=== PATIENT | female | born 1980 | race Hispanic/Latino ===

== ENCOUNTER 2019-09-25 00:35 | Emergency (ER) | payer BC ==
--- OUTSIDE RECORDS SUMMARY | 2019-09-25 00:38 | XMS REPORT ---
:1980 [facility] Address [address] [place] [address] Care Team Providers Name Role Phone Unavailable Unavailable Unavailable Payers Payer Name Policy Type Policy Number Effective Date Expiration Date Problems This patient has no known problems. Allergies, Adverse Reactions, Alerts Allergy Allergy Status Severity Reaction(s) Onset Inactive Treating Comments Name Type Date Date Clinician No Known DA Active U 2019-01 00:00:0 0 Medications This patient has no known medications. Results Test Description Test Time Test Comments Text Results Atomic Results Result Comments HCG SERUM 2019-01-26 19:41:00 Test Item Value Reference Range Comments HCG SERUM (test code=HCG) 80152 INTERPRETATION:VALUES BETWEEN 15-20 milliInternational units/mL NEED TO BERETESTED WITHIN 48 HOURS. All units for these ranges are in milliInternationalunits/mL0-1 WK AFTER CONCEPTION 0-50 1-2 WKS AFTER CONCEPTION 40-3002-3 WKS AFTER CONCEPTION 100-1,0003-4 WKS AFTER CONCEPTION 500-6,0001-2 MONTHS AFTER CONCEPTION 5,000-200,0002-3 MONTHS AFTER CONCEPTION 10,000-100,0002ND TRIMESTER 3,000-50,0003RD TRIMESTER 1,000-50,000 SPECIMENS WITH AN HCG LEVEL FROM 0-6 milliInternationalunits/mL SHOULD BE CONSIDERED NEGATIVE CBC W/AUTO [id number] 18:58:00 Test Item Value Reference Range Comments WHITE BLOOD CELL (test code=WBC) 5.5 K/mm3 6.6-12.1 RED BLOOD CELL (test code=RBC) 4.20 M/mm3 3.45-5.01 HEMOGLOBIN (test code=HGB) 13.3 g/dL 10.7-13.9 HEMATOCRIT (test code=HCT) 42.0 % 32.1-42.1 MEAN CELL VOLUME (test code=MCV) 100 fL 84.1-94.8 MEAN CELL HGB (test code=MCH) 31.7 pg 27-35 MEAN CELL HGB CONCETRATION (test code=MCHC) 31.7 gm/dL 32.2-34.1 RED CELL DISTRIBUTION WIDTH (test code=RDW) 16.0 % 12.4-16.5 PLATELET COUNT (test code=PLT) 299 K/mm3 133-385 IMMATURE PLATELET FRACTION (test code=IPF) 0.0 % 0.0-10.8 MEAN PLATELET VOLUME (test code=MPV) 10.0 fl 9.1-12.7 NEUTROPHIL % (test code=NT%) 64.5 % 56.5-79.4 LYMPHOCYTE % (test code=LY%) 25.3 % 14.3-34.3 MONOCYTE % (test code=MO%) 8.7 % 5.1-10.4 EOSINOPHIL % (test code=EO%) 1.1 % 0.1-3.0 BASOPHIL % (test code=BA%) 0.2 % 0.1-1.0 NEUTROPHIL # (test code=NT#) 3.5 K/mm3 LYMPHOCYTE # (test code=LY#) 1.4 K/mm3 MONOCYTE # (test code=MO#) 0.5 K/mm3 EOSINOPHIL # (test code=EO#) 0.06 K/mm3 BASOPHIL # (test code=BA#) 0.0 K/mm3 RBC MORPHOLOGY REQUIRED (test code=RBCM) NORMAL NORMAL PLATELET MORPHOLOGY REQUIRED (test code=PLTMR) NORMAL NORMAL - US PREG UT [id number] 18:32:00 Patient Name: ANGEL MANZANARES Unit No: [id number] EXAMS: CPT CODE: [id number] [place] TRANSVAGINAL [address] PELVIC ULTRASOUND, 01/26/2019: COMPARISON: None CLINICAL HISTORY: VAGINAL BLEEDING TECHNIQUE: Transabdominal and endovaginal scanning was performed. FINDINGS: The uterus measures 12.3 x 6.4 x 8.3 cm. The uterus contains a gestational sac and pole. Mean crown-rump length was 6 mm consistent with estimated age of 6 weeks and 3 days. No cardiac activity noted. No definite subchorionic bleed identified. Multiple uterine fibroids were visualized. They measure as follows: 2.4 x 2.8 x 2.5 cm anterior intramural fibroid 1.6 x 1.8 x 1.9 cm anterior right intramural fibroid 1.9 x 1.8 x 1.8 cm posterior intramural fibroid 1.2 x 1.0 x 1.8 cm posterior intramural fibroid 2.4 x 2.0 x 2.2 cm fundal fibroid. The right ovary measures 3.5 x 1.9 x 2.5 cmand contains a 2.5 cm corpus luteum cyst. The left ovary measures 3.6 x 1.9 x 1.6 cm and appears normal. No free fluid is evident. CONCLUSION: Intrauterine gestation with estimated age of6 weeks and 3 days. No cardiac activity is seen. Findings are worrisome for nonviable intrauterine gestation. Recommend follow-up sonographic evaluation and/or correlation with serial beta hCG levels for confirmation. Fibroid uterus. Electronically Signed by Jefferson Camara MD on 2018 at 1832 Reported and signed by: Jefferson Camara MD CC: Sobeida Cee MD Technologist : Rabia Whitlock RDMS, RVT Probe: [id number] Trnscrbd D/ ( 183) [email or web address] Orig Print D/T: S: 01/26/2019(183) [facility] NAME: ANGEL MANZANARES Radiology Department PHYS: Sobeida Lao MD [address] : 1980 AGE: 38 SEX: F [place], [place] [address] LOC: JERI PHONE #: [phone] EXAM DATE: 01/26/2019 STATUS: REG ER FAX #: [phone] RAD NO: Page 1 Signed Report Patient Name: ANGEL MANZANARES Unit No : [id number] EXAMS: CPT CODE: [id number] [facility] TRANSVAGINAL [address] <Continued> [facility] NAME: ANGEL MANZANARES Radiology Department PHYS: Sobeida Lao MD [address] : 1980 AGE: 38 SEX: F [place] [address] LOC: JERI PHONE #: [phone] EXAM DATE: 01/26/2019 STATUS: REG ER FAX #: [phone] RAD NO: Page 2 Signed Report- US PREG EVAL 1ST [id number] 18:32:00 Patient Name: ANGEL MANZANARES Unit No: [id number] EXAMS : CPT CODE: [id number] US PREG EVAL 1ST TRIMTR 92097 PELVIC ULTRASOUND, 01/26/2019: COMPARISON: None CLINICAL HISTORY: VAGINAL BLEEDING TECHNIQUE: Transabdominal and endovaginal scanning was performed. FINDINGS: The uterus measures 12.3 x 6.4 x 8.3 cm. The uterus contains a gestational sac and pole. Mean crown-rump length was 6 mm consistent with estimated age of 6 weeks and 3 days. No cardiac activity noted. No definite subchorionic bleed identified. Multiple uterine fibroids were visualized. They measure as follows: 2.4 x 2.8 x 2.5 cm anterior intramural fibroid 1.6 x 1.8 x 1.9 cm anterior right intramural fibroid 1.9 x 1.8 x 1.8 cm posterior intramural fibroid 1.2 x 1.0 x 1.8 cm posterior intramural fibroid 2.4 x 2.0 x 2.2 cm fundal fibroid. The right ovary measures 3.5 x 1.9 x 2.5 cmand contains a 2.5 cm corpus luteum cyst. The left ovary measures 3.6 x 1.9 x 1.6 cm and appears normal. No free fluid is evident. CONCLUSION: Intrauterine gestation with estimated age of6 weeks and 3 days. No cardiac activity is seen. Findings are worrisome for nonviable intrauterine gestation. Recommend follow-up sonographic evaluation and/or correlation with serial beta hCG levels for confirmation. Fibroid uterus. at 1832 Reported and signed by: Jefferson Camara MD CC: Maite Saravia MD Technologist: Rabia Whitlock RDMS, RVT Probe: Trnscrbd D/ (1831) [email or web address] Orig Print D/T: S: 01/26/2019(1834) [facility] NAME: ANGLE MANZANARES Radiology Department PHYS : [facility] [address] : AGE: 38 SEX: F [place] [address] LOC: ElianERS PHONE #: [phone] EXAM DATE: STATUS: REG ER FAX #: [phone] RAD NO: Page 1 Signed Report Patient Name: ANGEL MANZANARES Unit No: [id number] EXAMS: CPT CODE: [id number] US PREG EVAL 1ST TRIMTR 08453 <Continued> [facility] NAME: ANGEL MANZANARES Radiology Department PHYS: REAGAN.Maite Rao MD [address] : 1980 AGE: 38 SEX: F [place] [address] LOC: ElianERS PHONE #: [phone] EXAM DATE: 01/26/2019 STATUS: REG ER FAX #: [phone] RAD NO: Page 2 Signed ReportUA RFLX MICR CULT IF [id number] 18:12:00 Test Item Value Reference Range Comments UA COLOR (test code=COLU) YELLOW YELLOW UA APPEARANCE (test code=APPU) CLEAR CLEAR UA GLUCOSE DIPSTICK (test code=DGLUU) NEGATIVE NEG UA BILIRUBIN DIPSTICK (test code=BILU) NEGATIVE NEG UA KETONE DIPSTICK (test code=KETU) NEGATIVE NEG UA SPECIFIC GRAVITY (test code=SGU) 1.023 1.001-1.035 UA BLOOD DIPSTICK (test code=CONSTANCE) 1+ NEG UA PH DIPSTICK (test code=GIGI) 5.0 5-9 UA PROTEIN DIPSTICK (test code=PROU) NEGATIVE NEG UA UROBILINIOGEN DIPSTICK (test code=URO) NEGATIVE mg/dL NEG UA NITRITE DIPSTICK (test code=JANNET) NEG NEG UA LEUKOCYTE ESTERASE DIPSTICK (test NEG NEG code=LEUU) UA WBC (test code=WBCU) 0-2 #/hpf NONE SEEN UA RBC (test code=RBCU) 0-2 #/hpf NONE SEEN UA EPITHELIAL CELLS (test code=EPIU) NONE SEEN #/HPF RARE-FEW UA BACTERIA (test code=BACU) NEGATIVE /HPF RARE-FEW UA MUCUS (test code=MUCU) 2+ NONE SEEN Indication for culture: Suprapubic Pain
--- OUTSIDE RECORDS SUMMARY | 2019-09-25 00:38 | XMS REPORT ---
:1980 Author Organization [employer] Care Team Providers Name Role Phone Karthikeyan Russo Provider Role Unavailable Allergies, Adverse Reactions, Alerts Substance Reaction Event Type N.K.D.A. 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 Problem Well woman exam Z01.419 Active Medications Medication Code Code Instructions Start End Status Dosage System Date Date Ibuprofen [facility] [id number] 200 MG Orally Active 2 tablets twice a day with food or milk as needed [facility] [id number] 1-20 MG-MCG October Active 1 tablet 1/20 Orally Once a 2017 day [facility] [place] [address]-65 1-20 MG-MCG Active 1 TABLET 1/20 ONCE A DAY ORALLY 84 DAYS Results Name Result Date Reference Range Unit Abnormality Flag ANTI-MULLERIAN HORMONE (FEMALE) 3707-7 ----ANTI-MULLERIAN HORMONE 0.98 [id number] 0.18-5.68 ng/mL ([facility]), FEMALE Summary Purpose [employer] Submission
--- OUTSIDE RECORDS SUMMARY | 2019-09-25 00:38 | XMS REPORT ---
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
[2019-09-25 01:51] LABS: Basophils % 0.5 % (0-1.3); Hematocrit 39.4 % (36.0-45.0); Lymphocytes % 37.2 % (15.3-44.8); MPV 9.1 fL (7.6-11.3); RBC Red Blood Cell Count 4.18 M/uL (3.86-4.86)
[2019-09-25] MEDS ORDERED: NA CHLORIDE 0.9% 500 ML ONE (01:58)
[2019-09-25] MEDS ORDERED: MECLIZINE HCL 12.5 MG TAB ONE (01:58)
[2019-09-25 01:59] LABS: Potassium 3.6 mmol/L (3.5-5.1)
[2019-09-25 03:46] LABS: Urine Blood NEGATIVE (NEG); Urine Glucose NEGATIVE (NEG); Urine Protein NEGATIVE (NEG); Urine pH 5.5 (5.0-7.0)
[2019-09-25 03:48] LABS: Urine Bacteria <20 /HPF (<20); Urine Culture Reflex Order NOT NEEDED; Urine RBC <5 /HPF (NONE SEEN)
--- NOTE | 2019-09-25 04:25 | EDPHYS ---
Physician Documentation [facility] Name: Diamond Lugo Age: 39 yrs Sex: Female : 1980 Arrival Date: 09/25/2019 Time: 00:38 Bed 5 Private MD: ED Physician Hermilo Gonzalez HPI: 09/24 02:04 This 39 yrs old Female presents to ER via Ambulatory with complaints of rn Dizziness, Headache, Doesn't Feel Right. 02:04 The patient presents with dizziness, feeling off balance, sense of spinning. Onset: The rn symptoms/episode began/occurred yesterday. Modifying factors: The symptoms are alleviated by holding head still, the symptoms are aggravated by changing position. Severity of symptoms: At their worst the symptoms were moderate in the emergency department the symptoms have improved. The patient has not experienced similar symptoms in the past. Reports yesterday morning "felt off", but nothing came of it, then around 2000 when getting out of bed, felt sensation of spinning and dizziness, no nausea/vomiting, no fever. No diarrhea or recent illness. No chest pain/sob. Worse when laying flat and changing position. . Historical: - Allergies: 00:50 No Known Allergies; jb4 - Home Meds: 00:50 hydroxycloroquine 1 tab 200 mg twice a day with meals [Active]; jb4 - PMHx: 00:50 Arthritis; jb4 - PSHx: 00:50 Knee surgery; jb4 - Immunization history:: Adult Immunizations up to date. - Social history:: Smoking status: Patient denies any tobacco usage or history of. Patient/guardian denies using alcohol, street drugs. - Family history:: not pertinent. - Hospitalizations: : No recent hospitalization is reported. ROS: 02:04 Constitutional: Negative for fever, chills, and weight loss, Eyes: Negative for injury, rn pain, redness, and discharge, Neck: Negative for injury, pain, and swelling, Cardiovascular: Negative for chest pain, palpitations, and edema, Respiratory: Negative for shortness of breath, cough, wheezing, and pleuritic chest pain, Abdomen/GI: Negative for abdominal pain, nausea, vomiting, diarrhea, and constipation, MS/Extremity: Negative for injury and deformity, Skin: Negative for injury, rash, and discoloration, Neuro: Negative for weakness, numbness, tingling, and seizure. Exam: 02:04 Constitutional: This is a well developed, well nourished patient who is awake, alert, rn and in no acute distress. Head/Face: Normocephalic, atraumatic. Eyes: Pupils equal round and reactive to light, extra-ocular motions intact. Lids and lashes normal. Conjunctiva and sclera are non-icteric and not injected. Cornea within normal limits. Periorbital areas with no swelling, redness, or edema. ENT: MMM Cardiovascular: Regular rate and rhythm. No pulse deficits. Respiratory: No increased work of breathing, no retractions or nasal flaring. Abdomen/GI: soft, non-tender MS/ Extremity: Pulses equal, no cyanosis. Neurovascular intact. Full, normal range of motion. Equal circumference. Neuro: Awake and alert, GCS 15, oriented to person, place, time, and situation. Cranial nerves II-XII grossly intact. Motor strength 5/5 in all extremities. Sensory grossly intact. Cerebellar exam normal. 03:00 ECG was reviewed by the Attending Physician. rn Vital Signs: 00:50 BP 125 / 88; Pulse 64; Resp 16; Temp 98.3(O); Pulse Ox 99% on R/A; Pain 6/10; jb4 00:57 BP 115 / 78 Supine; Pulse 73; mt 00:57 BP 127 / 83 Sitting; Pulse 97; mt 00:57 BP 115 / 85 Standing; Pulse 92; mt 02:15 BP 129 / 78; Pulse 74; Resp 16; Pulse Ox 98% on R/A; jb4 03:01 BP 126 / 77; Pulse 73; Resp 16; Pulse Ox 99% on R/A; jb4 04:15 BP 123 / 77; Pulse 64; Resp 16; Pulse Ox 99% on R/A; jb4 MDM: 00:58 Patient medically screened. rn 04:15 Differential diagnosis: generalized weakness, hypovolemia, idiopathic dizziness, rn near-syncope, TIA, vertigo. Data reviewed: vital signs, nurses notes, lab test result(s), EKG, radiologic studies, CT scan, and as a result, I will. Counseling: I had a detailed discussion with the patient and/or guardian regarding: the historical points, exam findings, and any diagnostic results supporting the discharge/admit diagnosis, radiology results, the need for outpatient follow up, to return to the emergency department if symptoms worsen or persist or if there are any questions or concerns that arise at home. Response to treatment: the patient's symptoms have mildly improved after treatment, and as a result, I will discharge patient. Special discussion: I discussed with the patient/guardian in detail that at this point there is no indication for admission to the hospital. It is understood, however, that if the symptoms persist or worsen the patient needs to return immediately for re-evaluation. Based on the history and exam findings, there is no indication for further emergent testing or inpatient evaluation. I discussed with the patient/guardian the need to see the neurologist for further evaluation of the symptoms. I discussed with the patient/guardian the need to see the primary care provider for further evaluation of the symptoms. ED course: No acute findings on ct head/neck angio, improved symptoms, will dc home with meclizine prn and neuro f/u. . 09/24 01:12 Order name: CBC with Diff; Complete Time: 02:17 rn 09/24 01:12 Order name: Basic Metabolic Panel; Complete Time: 02:17 rn 09/24 01:12 Order name: CT Head Brain wo Cont rn 09/24 01:12 Order name: Urine Microscopic Only; Complete Time: 04:15 rn 09/24 03:06 Order name: Urine Dipstick--Ancillary (enter results); Complete Time: 04:15 mw2 09/24 03:06 Order name: Urine --Ancillary (enter results); Complete Time: 04:15 mw2 09/24 01:12 Order name: IV Start; Complete Time: 01:24 rn 09/24 01:12 Order name: EKG; Complete Time: 01:12 rn 09/24 01:12 Order name: EKG - Nurse/Tech; Complete Time: 02:26 rn 09/24 01:12 Order name: Urine Test (obtain specimen); Complete Time: 03:07 rn 09/24 03:04 Order name: CT Head Angio rn 09/24 03:04 Order name: CT Neck Angio rn 09/24 01:12 Order name: Urine Dipstick-Ancillary (obtain specimen); Complete Time: 03:07 rn EC:00 Rate is 68 beats/min. Rhythm is regular. QRS [place] is Normal. [place] interval is normal. QRS rn interval is normal. QT interval is normal. No Q waves. T waves are Normal. No ST changes noted. Clinical impression: Normal ECG. Interpreted by me. Reviewed by me. Administered Medications: 02:10 Drug: Meclizine 50 mg Route: PO; 4 03:00 Follow up: Response: No adverse reaction; Marked relief of symptoms [facility] 02:20 Drug: NS 0.9% 500 ml Route: IV; Rate: bolus; Site: left antecubital; 4 03:00 Follow up: Response: No adverse reaction; IV Status: Completed infusion; IV Intake: jb4 500ml Disposition: 09/25/19 04:24 Discharged to Home. Impression: Vertigo. - Condition is Stable. - Discharge Instructions: Vertigo. - Prescriptions for Meclizine 25 mg Oral Tablet - take 1 tablet by ORAL route every 8 hours As needed; 30 tablet. - Medication Reconciliation Form, Thank You Letter, Antibiotic Education, Prescription Opioid Use form. - Follow up: Private Physician; When: As needed; Reason: Recheck today's complaints, Re-evaluation by your physician. - Problem is new. - Symptoms have improved. Signatures: Dispatcher [employer] EDMS Hermilo Gonzalez MD MD rn Bryson, James, RN RN jb4 Corrections: (The following items were deleted from the chart) 04:47 04:24 09/25/2019 04:24 Discharged to Home. Impression: Vertigo. Condition is Stable. jb4 Discharge Instructions: Vertigo. Prescriptions for Meclizine 25 mg Oral Tablet - take 1 tablet by ORAL route every 8 hours As needed; 30 tablet. and Forms are Medication Reconciliation Form, Thank You Letter, Antibiotic Education, Prescription Opioid Use. Follow up: Private Physician; When: As needed; Reason: Recheck today's complaints, Re-evaluation by your physician. Problem is new. Symptoms have improved. rn
--- NOTE | 2019-09-25 04:25 | ER ---
Nurse's Notes [facility] Name: Diamond Lugo Age: 39 yrs Sex: Female : 1980 Arrival Date: 09/25/2019 Time: 00:38 Bed 5 Private MD: Diagnosis: Vertigo Presentation: 09/24 00:50 Chief complaint: Patient states: I started just feeling off at around 9am yesterday jb4 after having my morning coffee. I started having a headache at around 7pm last night and started feeling dizzy around 8pm. 00:50 Coronavirus screen: The patient has NOT traveled to [place] in the past 14 days. Proceed jb4 with normal triage procedures. The patient has NOT had contact with known and/or suspected case of Coronavirus. Proceed with normal triage procedures. Ebola Screen: No symptoms or risks identified at this time. Initial Sepsis Screen: Does the patient meet any 2 criteria? No. Patient's initial sepsis screen is negative. Does the patient have a suspected source of infection? No. Patient's initial sepsis screen is negative. Risk Assessment: Do you want to hurt yourself or someone else? Patient reports no desire to harm self or others. 00:50 Method Of Arrival: Ambulatory jb4 00:50 Acuity: SHANDA 3 jb4 Triage Assessment: 00:50 Headache History: Denies prior headaches. General: Appears in no apparent distress. jb4 uncomfortable, Behavior is calm, cooperative, appropriate for age. Pain: Complains of pain in headache Pain does not radiate. Pain currently is 6 out of 10 on a pain scale. Pain began 7 pm yesterday. Also complains of no other associated symptoms. Neuro: Level of Consciousness is awake, alert, obeys commands, Oriented to person, place, time, situation, [place] are equal bilaterally Moves all extremities. Full function. Historical: - Allergies: 00:50 No Known Allergies; jb4 - Home Meds: 00:50 hydroxycloroquine 1 tab 200 mg twice a day with meals [Active]; jb4 - PMHx: 00:50 Arthritis; jb4 - PSHx: 00:50 Knee surgery; jb4 - Immunization history:: Adult Immunizations up to date. - Social history:: Smoking status: Patient denies any tobacco usage or history of. Patient/guardian denies using alcohol, street drugs. - Family history:: not pertinent. - Hospitalizations: : No recent hospitalization is reported. Screenin:50 Abuse screen: Denies threats or abuse. Nutritional screening: No deficits noted. jb4 Tuberculosis screening: No symptoms or risk factors identified. Fall Risk None identified. Assessment: 00:50 General: Appears in no apparent distress. comfortable, Behavior is calm, cooperative, jb4 appropriate for age. Pain: Complains of pain in headache Pain does not radiate. Pain currently is 6 out of 10 on a pain scale. Pain began 7 pm Also complains of no other associated symptoms. Neuro: Level of Consciousness is awake, alert, obeys commands, Oriented to person, place, time, situation, [place] are equal bilaterally Moves all extremities. Full function Gait is steady, Speech is normal, Facial symmetry appears normal, Pupils are PERRLA, Intact. Cardiovascular: Patient's skin is warm and dry. Respiratory: Airway is patent Respiratory effort is even, unlabored, Respiratory pattern is regular, symmetrical. GI: No signs and/or symptoms were reported involving the gastrointestinal system. : No signs and/or symptoms were reported regarding the genitourinary system. EENT: No signs and/or symptoms were reported regarding the EENT system. Derm: Skin is intact, Skin is pink, warm \T\ dry. Musculoskeletal: Circulation, motion, and sensation intact. Range of motion: intact in all extremities. 02:00 Reassessment: Patient appears in no apparent distress at this time. Patient and/or jb4 family updated on plan of care and expected duration. Pain level reassessed. Patient is alert, oriented x 3, equal unlabored respirations, skin warm/dry/pink. Pt reports that the dizziness has decreased. 03:01 Reassessment: Patient appears in no apparent distress at this time. Patient and/or jb4 family updated on plan of care and expected duration. Pain level reassessed. Patient is alert, oriented x 3, equal unlabored respirations, skin warm/dry/pink. Pt reports the dissiness is still there. Reports it worsens when laying down flat and when trying to ambulate. Pt reports worsening headache, rates pain \T\ 1/10, denies wanting any medication for it. Provider notified. 04:00 Reassessment: Patient appears in no apparent distress at this time. Patient and/or jb4 family updated on plan of care and expected duration. Pain level reassessed. Patient is alert, oriented x 3, equal unlabored respirations, skin warm/dry/pink. PT reports still feeling dizzy. Updated on plan of care and pending test results. 04:41 Reassessment: Pt reports feeling better. Reports dizziness has decreased, denies still jb4 having a headache. Verbalized understanding of d/c and follow up instructions. IV D/C'ed intact with no s/s of inflammation at insertion site. Is a\T\o x4, ambulated out of ED with a steady gait. Went home with significant other. Vital Signs: 00:50 BP 125 / 88; Pulse 64; Resp 16; Temp 98.3(O); Pulse Ox 99% on R/A; Pain 6/10; jb4 00:57 BP 115 / 78 Supine; Pulse 73; mt 00:57 BP 127 / 83 Sitting; Pulse 97; mt 00:57 BP 115 / 85 Standing; Pulse 92; mt 02:15 BP 129 / 78; Pulse 74; Resp 16; Pulse Ox 98% on R/A; jb4 03:01 BP 126 / 77; Pulse 73; Resp 16; Pulse Ox 99% on R/A; jb4 04:15 BP 123 / 77; Pulse 64; Resp 16; Pulse Ox 99% on R/A; jb4 ED Course: 00:38 Patient arrived in ED. jg7 00:50 Arm band placed on right wrist. jb4 00:50 Patient has correct armband on for positive identification. Bed in low position. Call jb4 light in reach. Side rails up X 1. Pulse ox on. NIBP on. 00:54 Eriberto Larson, RN is Primary Nurse. jb4 00:58 Hermilo Gonzalez MD is Attending Physician. rn 01:08 Triage completed. jb4 01:23 Inserted saline lock: 20 gauge in right antecubital area, using aseptic technique. mt Blood collected. 01:33 CT Head Brain wo Cont In Process Unspecified. EDMS 02:10 IV discontinued, intact, bleeding controlled, No redness/swelling at site. Pressure jb4 dressing applied. 02:15 Missed attempt(s): 20 gauge in right wrist. Bleeding controlled, band aid applied, jb4 catheter tip intact. 02:20 Inserted saline lock: 22 gauge in left forearm, using aseptic technique. jb4 03:47 CT Head Angio In Process Unspecified. EDMS 03:54 CT Neck Angio In Process Unspecified. EDMS 04:46 No provider procedures requiring assistance completed. IV discontinued, intact, jb4 bleeding controlled, No redness/swelling at site. Pressure dressing applied. Administered Medications: 02:10 Drug: Meclizine 50 mg Route: PO; jb4 03:00 Follow up: Response: No adverse reaction; Marked relief of symptoms jb4 02:20 Drug: NS 0.9% 500 ml Route: IV; Rate: bolus; Site: left antecubital; jb4 03:00 Follow up: Response: No adverse reaction; IV Status: Completed infusion; IV Intake: jb4 500ml Intake: 03:00 IV: 500ml; Total: 500ml. jb4 Outcome: 04:24 Discharge ordered by . rn 04:46 Discharged to home ambulatory, with family. jb4 04:46 Condition: stable 04:46 Discharge instructions given to patient, Instructed on discharge instructions, follow up and referral plans. medication usage, Demonstrated understanding of instructions, follow-up care, medications, Prescriptions given X 1. 04:47 Patient left the ED. jb4 Signatures: Dispatcher [employer] Hermilo Levy MD MD rn Bryson, James, RN RN jb4 Thompson, Moriah mt Gutierrez, Jessica jg7
[2019-09-25 05:03] VITALS: TEMP 98.3
[2019-09-25 05:07] VITALS: O2SAT 99
[2019-09-25 05:09] VITALS: BP 123/77
--- NOTE | 2019-09-25 05:51 | EKG ---
Test Date: 2019-09-25 Test Time: 02:19:37 Marketing Research Coordinator: RICHARD MEASUREMENT RESULTS: Intervals: Rate: 68 DE: 170 QRSD: 80 QT: 380 QTc: 404 [place]: P: 40 DE: 170 QRS: 55 T: 49 INTERPRETIVE STATEMENTS: Normal sinus rhythm Normal ECG No previous ECG available for comparison Electronically Signed On 09-25-19 05:51:03 COMPOSITE BOND WORKER by Zackery Adams
--- NOTE | 2019-09-25 12:29 | RAD REPORT ---
EXAM DESCRIPTION: CT - Head Brain Wo Cont - 09/25/2019 5:25 am CLINICAL HISTORY: 39-year-old female with dizziness TECHNIQUE: Multiple axial CT images of the brain were performed followed by sagittal and coronal rec onstructed images. The CT study is performed according to ALARA (as low as reasonably achievable) or ALARA/IMAGE GENTLY, with automatic adjustment of mA and/or kV according to patient size. Performed on: 09/25/2019 at 1:32 AM COMPARISON: None. FINDINGS: There is no evidence of mass, acute mass effect or midline shift. There are no acute extra -axial fluid collections. There is no evidence of acute intracranial hemorrhage. The cerebral sulci and ventricles are normal in size and configuration. There are no focal abnormal areas of increased or decreased attenuation. There is no significant mucosal thickening of the paranasal sinuses. The mastoid air cells are clear. The orbital contents are grossly unremarkable. No acute osseous abnormalities are identified. No focal soft tissue abnormalities are identified. IMPRESSION: There is no evidence of acute intracranial pathology. Electronically signed by: Shazia Cueva DO 09/25/2019 1:46 AM CERTIFIED MEDICAL ASST Due to temporary technical issues with the PACS/Fluency reporting system, reports are being signed by the in house radiologist as a courtesy to ensure prompt reporting. The interpreting radiologist is f ully responsible for the content of the report.
--- NOTE | 2019-09-25 12:31 | RAD REPORT ---
EXAM DESCRIPTION: CT - Head angio - 09/25/2019 5:25 am CLINICAL HISTORY: 39 years, Female, DIZZINESS COMPARISON: 09/25/2019 TECHNIQUE: Axial CTA images of the head and neck obtained following the uncomplicated intravenous ad ministration of iodinated contrast. 3-D/MIP reformatted images available. FINDINGS: CTA head: In the anterior circulation, the intracranial internal carotid arteries have normal course and calibe r. The internal carotid arteries bifurcate into widely patent A1 and M1 segments of the anterior and middle cerebral arteries respectively. No evidence of flow-limiting stenosis, aneurysm, occlusion, or dissection in the anterior circulation. The anterior communicating artery is patent. In the posterior circulation, the intracranial vertebral arteries combine to form a widely patent bas ilar artery. The basilar artery bifurcates into widely patent P1 segments of the posterior cerebral a rtery. No evidence of stenosis, aneurysm, occlusion, or dissection in the posterior circulation. No definite acute intracranial abnormality identified. No acute abnormality of the osseous calvarium. Paranasal sinuses and mastoid air cells are well aerated. CTA NECK: The aortic arch has normal anatomic configuration. The origin of the great vessels are widely patent. The right common carotid artery is widely patent and bifurcates into widely patent internal and exter nal carotid arteries. 0% stenosis by NASCET criteria. No evidence of occlusion or dissection. The left common carotid artery is widely patent and bifurcates into widely patent internal and broom bundler al carotid arteries. 0% stenosis by NASCET criteria. No evidence of occlusion or dissection. The cervical vertebral arteries are widely patent throughout their course. No evidence of occlusion, stenosis, or dissection. No definite acute abnormalities in the neck soft tissues. No apical pneumothorax. No acute osseous ab normalities. IMPRESSION: 1. No evidence of stenosis, occlusion or aneurysm in the intracranial arterial circulati on. 2. No evidence of stenosis/occlusion of the cervical carotid or vertebral arteries. This exam was performed according to our departmental dose-optimization program, which includes autom ated exposure control, adjustment of the mA and/or kV according to patient size and/or use of iterati ve reconstruction technique. Electronically signed by: Apollo Jang 09/25/2019 4:18 AM HAIRSPRING II INSPECTOR Due to temporary technical issues with the PACS/Fluency reporting system, reports are being signed by the in house radiologist as a courtesy to ensure prompt reporting. The interpreting radiologist is f srinivasly responsible for the content of the report.
--- NOTE | 2019-09-25 12:33 | RAD REPORT ---
EXAM DESCRIPTION: CT - Neck Angio - 09/25/2019 5:24 am CLINICAL HISTORY: 39 years, Female, DIZZINESS COMPARISON: 09/25/2019 TECHNIQUE: Axial CTA images of the head and neck obtained following the uncomplicated intravenous ad ministration of iodinated contrast. 3-D/MIP reformatted images available. FINDINGS: CTA head: In the anterior circulation, the intracranial internal carotid arteries have normal course and calibe r. The internal carotid arteries bifurcate into widely patent A1 and M1 segments of the anterior and middle cerebral arteries respectively. No evidence of flow-limiting stenosis, aneurysm, occlusion, or dissection in the anterior circulation. The anterior communicating artery is patent. In the posterior circulation, the intracranial vertebral arteries combine to form a widely patent bas ilar artery. The basilar artery bifurcates into widely patent P1 segments of the posterior cerebral a rtery. No evidence of stenosis, aneurysm, occlusion, or dissection in the posterior circulation. No definite acute intracranial abnormality identified. No acute abnormality of the osseous calvarium. Paranasal sinuses and mastoid air cells are well aerated. CTA NECK: The aortic arch has normal anatomic configuration. The origin of the great vessels are widely patent. The right common carotid artery is widely patent and bifurcates into widely patent internal and exter nal carotid arteries. 0% stenosis by NASCET criteria. No evidence of occlusion or dissection. The left common carotid artery is widely patent and bifurcates into widely patent internal and manager quality systems al carotid arteries. 0% stenosis by NASCET criteria. No evidence of occlusion or dissection. The cervical vertebral arteries are widely patent throughout their course. No evidence of occlusion, stenosis, or dissection. No definite acute abnormalities in the neck soft tissues. No apical pneumothorax. No acute osseous ab normalities. IMPRESSION: 1. No evidence of stenosis, occlusion or aneurysm in the intracranial arterial circulati on. 2. No evidence of stenosis/occlusion of the cervical carotid or vertebral arteries. This exam was performed according to our departmental dose-optimization program, which includes autom ated exposure control, adjustment of the mA and/or kV according to patient size and/or use of iterati ve reconstruction technique. Electronically signed by: Apollo Jang 09/25/2019 4:18 AM TRANSCRIPTION TYPIST Due to temporary technical issues with the PACS/Fluency reporting system, reports are being signed by the in house radiologist as a courtesy to ensure prompt reporting. The interpreting radiologist is f srinivasly responsible for the content of the report.
== END 2019-09-25 04:47 | disposition home or self-care (01) ==
LOC: ER 00:35
DX: R42 Dizziness and giddiness (principal)
CPT/HCPCS: 93005; 85025; 80048; 36415; 81025; 70450; 70496; 70498; 96360; 99284; Q9967; J7040; 81003; 81015; J8597

== ENCOUNTER 2020-01-26 01:23 | Emergency (ER) | payer BC ==
--- OUTSIDE RECORDS SUMMARY | 2020-01-26 01:27 | XMS REPORT | Continuity of Care Document ---
:1980 Author Organization [facility] Address [address] [place] [address] Care Team Providers Name Role Phone Unavailable Unavailable Unavailable Payers Payer Name Policy Type Policy Number Effective Date Expiration Date S ource Problems Condition Condition Condition Status Onset Resolution Last Treating Co mments Source Name Details Category Date Date Treatment Clinician Date Systemic Systemic Problem [facility] erythe[facility]o erythemato Me moria alex alex l [facility] Abnormal Abnormal Problem Active [facility] Sarahi kes - test test Memoria [facility] Well woman Well woman Problem Active [facility] exam exam [facility] - Memoria l [facility] Female Female Problem Active [facility] fertility fertility Luke s - problem problem Memoria l [facility] Allergies, Adverse Reactions, Alerts Allergy Allergy Status Severity Reaction(s) Onset Inactive Treating Comm ents Source Name Type Date Date Clinician No Known DA Active [facility]05 [facility] Medications Ordered Filled Start Stop Current Ordering Indication Dosage Frequency Signature Comments Components Source Medication Medication Date Date Medication? Clinician (SIG) Name Name Daniele EDWARDS Yes Karthikeyan [address] [facility] 08/13 08/13 4-11 Rekhi ONCE A DAY [facility] - 00:00: ORALLY 84 Memoria 00 DAYS l [facility] Ibuprofen Ibuprofen Yes Karthikeyan [address] [facility] Rekhi with food [facility] - or milk as Memoria needed [facility] ent Clinics Procedures This patient has no known procedures. Encounters Start End Encounter Admission Attending Care Care Encounter Source Date/Time Date/Time Type Type Clinicians Facility Department ID 2019-01-05 2019-01-05 Outpatient [facility]o [facility] [id number] [facility] 16:01:00 16:01:00 t [facility] 2018-08-21 2018-08-21 [place] [place] [id number] [facility] 13:42:00 13:42:00 t [facility] 2018-07-28 2018-07-28 [place] [id number] [facility] 10:30:00 10:30:00 t [facility] 2017-12-09 2017-12-09 Outpatient [place] [id number] [facility] 09:30:00 09:30:00 t [facility] 2017-12-06 2017-12-06 Outpatient [place] [id number] [facility] 15:45:00 15:45:00 t [facility] Results Test Description Test Time Test Comments Results Result Comments Source HCG SERUM 2019-01-26 19:41:00 Test Item Value Reference Range Interpretation Comme nts HCG SERUM (test code = 42329 INTER PRETATION:VALUES BETWEEN 15-20 HCG) milliInternatio nal units/mL NEED TO BERETESTED WITHIN 48 HOURS . All units for these ranges are in milliInterna tionalunits/mL0-1 WK AFTER CONCEPTION 0-50 1-2 WKS AFTER CONCEPTION 40-3002-3 WKS AFTER CONCEPTION 100-1,0003-4 WKS AFTER CONCEPTION 500-6,0001-2 MONTHS AFTER CONCEPTION 5,000-200,0002-3 MONTHS AFTER CONCEPTION 10,000-100,0002ND TRIMESTER 3,0 00-50,0003RD TRIMESTER 1,000-50 ,000 SPECIMENS WITH AN HCG LEVEL FROM 0-6 milliI nternationalunits/mL SHOULD BE CONSIDERED NEGA TIVE CBC W/AUTO [id number] 18:58:00 Test Item Value Reference Range Interpretation Comments WHITE BLOOD CELL (test code = WBC) 5.5 K/mm3 6.6-12.1 L RED BLOOD CELL (test code = RBC) 4.20 M/mm3 3.45-5.01 N HEMOGLOBIN (test code = HGB) 13.3 g/dL 10.7-13.9 N HEMATOCRIT (test code = HCT) 42.0 % 32.1-42.1 N MEAN CELL VOLUME (test code = MCV) 100 fL 84.1-94.8 H MEAN CELL HGB (test code = MCH) 31.7 pg 27-35 N MEAN CELL HGB CONCETRATION (test 31.7 gm/dL 32.2-34.1 L code = MCHC) RED CELL DISTRIBUTION WIDTH (test 16.0 % 12.4-16.5 N code = RDW) PLATELET COUNT (test code = PLT) 299 K/mm3 133-385 N IMMATURE PLATELET FRACTION (test 0.0 % 0.0-10.8 N code = IPF) MEAN PLATELET VOLUME (test code = 10.0 fl 9.1-12.7 N MPV) NEUTROPHIL % (test code = NT%) 64.5 % 56.5-79.4 N LYMPHOCYTE % (test code = LY%) 25.3 % 14.3-34.3 N MONOCYTE % (test code = MO%) 8.7 % 5.1-10.4 N EOSINOPHIL % (test code = EO%) 1.1 % 0.1-3.0 N BASOPHIL % (test code = BA%) 0.2 % 0.1-1.0 N NEUTROPHIL # (test code = NT#) 3.5 K/mm3 LYMPHOCYTE # (test code = LY#) 1.4 K/mm3 MONOCYTE # (test code = MO#) 0.5 K/mm3 EOSINOPHIL # (test code = EO#) 0.06 K/mm3 BASOPHIL # (test code = BA#) 0.0 K/mm3 RBC MORPHOLOGY REQUIRED (test code NORMAL NORMAL = RBCM) PLATELET MORPHOLOGY REQUIRED (test NORMAL NORMAL code = PLTMR) - US PREG UT [id number] 18:32:00 Patient Name: ANGEL MANZANARES Unit No: [id number] EXAMS: CPT CODE: [id number] US PREG UT TRANSVAGINAL 31772 PELVIC ULTRASOUND, 01/26/2019: COMPARISON: None CLINICAL HISTORY: [...] Jefferson Camara MD CC: Sobeida Cee MD Technologist: Rabia Whitlock RDMS, T Probe: [id number] Trnscrbd D/ (183) [email or web address] Orig Print D/T: S: 01/26/2019(183) [facility] NAME: LEIGHTONANGEL Radiology Department PHYS: Sobeida Lao MD [address] : 1980 AGE: 38 SEX: F [place], [place] [address] LOC: JERI PHONE #: [phone] EXAM DATE: 01/26/2019 STATUS: REG ER FAX #: [phone] RAD NO: Page 1 Signed Report Patient Name: ANGEL MANZANARES Unit No: [id number] EXAMS: CPT CODE: [id number] US PREG UT TRANSVAGINAL 95[address] <Continued> [facility] NAME: ANGEL MANZANARES Radiology Department PHYS: Sobeida Lao MD [address] : 1980 AGE: 38 SEX: F [place], [place] [address] LOC: FGeraldERS PHONE #: [phone] EXAM DATE: 01/26/2019 STATUS: REG ER FAX #: [phone] R AD NO: Page 2 Signed Report- US PREG EVAL 1ST [id number] 18:32:00 Patient Name: ANGEL MANZANARES Unit No: [id number] EXAMS: CPT CODE: [id number] US PREG EVAL 1ST TRIMTR 44365 PELVIC ULTRASOUND, 01/26/2019: COMPARISON: None CLINICAL HISTORY: [...] Rabia Whitlock RDMS, RVT Probe: Trnscrbd D/ (1832) [id number] Orig Print D/T: S: 01/26/2019(1835) [facility] NAME: ANGEL MANZANARES Radiology Department PHYS: Maite Steward MD [address] : 1980 AGE: 38 SEX: F [place] [address] LOC: ElianERS PHONE #: [phone] EXAM DATE: 01/26/2019 STATUS: REG ER FAX #: [phone] RAD NO: Page 1 Signed Report Patient Name: ANGEL MANZANARES Unit No: [id number] EXAMS: CPT CODE: [id number] US PREG EVAL 1ST TRIMTR 37860 <Continued> [facility] NAME: ANGEL MANZANARES Radiology Department PHYS: Maite Steward MD [address] : 1980 AGE: 38 SEX: F [place] [address] LOC: ElianERS PHONE #: [phone] EXAM DATE: 01/26/2019 STATUS: REG ER FAX #: [phone] R AD NO: Page 2 Signed ReportUA RFLX MICR CULT IF [id number] 18:12:00 Test Item Value Reference Range Interpretation Comments UA COLOR (test code = COLU) YELLOW YELLOW UA APPEARANCE (test code = CLEAR CLEAR APPU) UA GLUCOSE DIPSTICK (test NEGATIVE NEG code = DGLUU) UA BILIRUBIN DIPSTICK (test NEGATIVE NEG code = BILU) UA KETONE DIPSTICK (test code NEGATIVE NEG = KETU) UA SPECIFIC GRAVITY (test 1.023 1.001-1.035 N code = SGU) UA BLOOD DIPSTICK (test code 1+ NEG A = CONSTANCE) UA PH DIPSTICK (test code = 5.0 5-9 GIGI) UA PROTEIN DIPSTICK (test NEGATIVE NEG code = PROU) UA UROBILINIOGEN DIPSTICK NEGATIVE mg/dL NEG (test code = URO) UA NITRITE DIPSTICK (test NEG NEG code = JANNET) UA LEUKOCYTE ESTERASE NEG NEG DIPSTICK (test code = LEUU) UA WBC (test code = WBCU) 0-2 #/hpf NONE SEEN UA RBC (test code = RBCU) 0-2 #/hpf NONE SEEN UA EPITHELIAL CELLS (test NONE SEEN #/HPF RARE-FEW code = EPIU) UA BACTERIA (test code = NEGATIVE /HPF RARE-FEW BACU) UA MUCUS (test code = MUCU) 2+ NONE SEEN Indication for culture: Suprapubic Pain
[2020-01-26] MEDS ORDERED: IBUPROFEN 400 MG TAB ONE (02:08)
[2020-01-26] MEDS ORDERED: TETANUS & DIPHTHERIA TOX,ADULT 0.5 ML VIAL ONE (02:08)
--- NOTE | 2020-01-26 02:21 | ER ---
Nurse's Notes [facility] Name: Diamond Lugo Age: 39 yrs Sex: Female : 1980 Arrival Date: 01/26/2020 Time: 01:30 Bed 7 Private MD: Diagnosis: Bitten by dog;Puncture wound without foreign body of left wrist;Abrasion of left wrist;Abrasion of right upper arm Presentation: 01/25 01:53 Chief complaint: Patient states: GOT BITTEN BY OWN DOG AT 2030 YESTERDAY ON THE LEFT rv WRIST AND RIGHT FOREARM. Coronavirus screen: Proceed with normal triage. Ebola Screen: No symptoms or risks identified at this time. Initial Sepsis Screen: Does the patient meet any 2 criteria? No. Patient's initial sepsis screen is negative. Does the patient have a suspected source of infection? No. Patient's initial sepsis screen is negative. Risk Assessment: Do you want to hurt yourself or someone else? Patient reports no desire to harm self or others. Onset of symptoms was January 25, 2020 at 20:30. 01:53 Method Of Arrival: Ambulatory 01:53 Acuity: SHANDA 4 rv Triage Assessment: 01:55 Bite description: bite sustained to dorsal aspect of left forearm and left wrist by a rv dog, animal information: vaccination(s) is current. General: Appears comfortable, Behavior is calm, cooperative. Pain: Complains of pain in left arm. Neuro: Level of Consciousness is awake, alert, obeys commands, Oriented to person, place, time, situation. Derm: Wound noted dorsal aspect of left forearm and left wrist Wound is DOG BITE, PUNCTURE. Musculoskeletal: Swelling present in dorsal aspect of left forearm and left wrist. 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 - Social history:: Smoking status: Patient denies any tobacco usage or history of. Screenin:19 Abuse screen: Denies threats or abuse. Denies injuries from another. Nutritional rv screening: No deficits noted. Tuberculosis screening: No symptoms or risk factors identified. Fall Risk None identified. Assessment: 02:19 Derm: Skin PUNCTURED WOUND, DOG BITE Skin is pink, warm \T\ dry. rv Vital Signs: 01:53 BP 139 / 85; Pulse 85; Resp 18; Temp 98.9; Pulse Ox 100% ; Weight 80.74 kg; Height 5 rv ft. 8 in. (172.72 cm); Pain 8/10; 01:53 Body Mass Index 27.06 (80.74 kg, 172.72 cm) rv ED Course: 01:30 Patient arrived in ED. ag3 01:39 Melvin Cabrera, VIVIAN is Primary Nurse. rv 01:41 Joe Camargo MD is Attending Physician. tw4 01:55 Triage completed. rv 01:56 Arm band placed on Patient placed in the treatment room, on a stretcher, Patient rv notified of wait time. 02:19 Patient has correct armband on for positive identification. Pulse ox on. NIBP on. rv 02:19 No provider procedures requiring assistance completed. Patient did not have IV access rv during this emergency room visit. Administered Medications: 02:00 Drug: Augmentin 875 mg Route: PO; rv 02:18 Follow up: Response: Medication administered at discharge. rv 02:00 Drug: Ibuprofen 800 mg Route: PO; rv 02:18 Follow up: Response: Medication administered at discharge. 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 Exp: 09/07/2021. Lot #: [id number]. } rv Route: IM; Site: right deltoid; 02:18 Follow up: Response: Medication administered at discharge. rv Outcome: 01:53 Discharge ordered by . tw4 02:20 Discharged to home ambulatory. rv 02:20 Condition: good 02:20 Discharge instructions given to patient, Instructed on discharge instructions, follow up and referral plans. medication usage, wound care, Demonstrated understanding of instructions, follow-up care, medications, wound care, Prescriptions given X 2. 02:20 Patient left the ED. rv Signatures: Joe Camargo MD MD tw4 Melvin Cabrera, VIVIAN RN rv Johana Whitfield ag3
[2020-01-26] MEDS ORDERED: AMOX/K CLAV 875 MG TAB ONE (02:22)
[2020-01-26 02:49] VITALS: BP 139/85; TEMP 98.9; O2SAT 100
--- NOTE | 2020-01-27 02:20 | EDPHYS ---
Physician Documentation [facility] Name: Diamond Lugo Age: 39 yrs Sex: Female : 1980 Arrival Date: 01/26/2020 Time: 01:30 Bed 7 Private MD: ED Physician Joe Camargo HPI: 01/25 06:29 This 39 yrs old Female presents to ER via Ambulatory with complaints of Dog tw4 Bite. 06:29 The patient was bitten on the right arm and left arm, by a dog, in an unprovoked tw4 manner, at home. Onset: The symptoms/episode began/occurred 4 hour(s) ago. Animal information: The animal was reported to appear healthy. Animal's vaccinations are up to date. Secondary to the bite the patient reports multiple puncture wounds, that are superficial, the largest being .5 cm(s). Associated signs and symptoms: The patient has no apparent associated signs or symptoms. Severity of symptoms: At their worst the symptoms were moderate, in the emergency department the symptoms are unchanged. The patient has not experienced similar symptoms in the past. 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 - Social history:: Smoking status: Patient denies any tobacco usage or history of. ROS: 06:29 Constitutional: Negative for fever, chills, and weight loss, ENT: Negative for injury, tw4 pain, and discharge, Cardiovascular: Negative for chest pain, palpitations, and edema, Respiratory: Negative for shortness of breath, cough, wheezing, and pleuritic chest pain, Abdomen/GI: Negative for abdominal pain, nausea, vomiting, diarrhea, and constipation, Back: Negative for injury and pain, Skin: Negative for injury, rash, and discoloration, Neuro: Negative for headache, weakness, numbness, tingling, and seizure. 06:29 MS/extremity: Positive for pain, puncture, tenderness. Exam: 06:29 Constitutional: This is a well developed, well nourished patient who is awake, alert, tw4 and in no acute distress. Head/Face: Normocephalic, atraumatic. Chest/axilla: Normal chest wall appearance and motion. Nontender with no deformity. No lesions are appreciated. Cardiovascular: Regular rate and rhythm with a normal S1 and S2. No gallops, murmurs, or rubs. Normal PMI, no JVD. No pulse deficits. Respiratory: Lungs have equal breath sounds bilaterally, clear to auscultation and percussion. No rales, rhonchi or wheezes noted. No increased work of breathing, no retractions or nasal flaring. 06:29 Neuro: Awake and alert, GCS 15, oriented to person, place, time, and situation. Cranial nerves II-XII grossly intact. Motor strength 5/5 in all extremities. Sensory grossly intact. Cerebellar exam normal. Normal gait. 06:29 Musculoskeletal/extremity: Extremities: noted in the right bicep: abrasion, contusion, noted in the left wrist: puncture. Vital Signs: 01:53 BP 139 / 85; Pulse 85; Resp 18; Temp 98.9; Pulse Ox 100% ; Weight 80.74 kg; Height 5 rv ft. 8 in. (172.72 cm); Pain 8/10; 01:53 Body Mass Index 27.06 (80.74 kg, 172.72 cm) rv MDM: 01:41 Patient medically screened. tw4 06:29 Differential diagnosis: superficial laceration, tendon injury, vascular injury. Rabies tw4 Status: Rabies immunization is not indicated. Data reviewed: vital signs, nurses notes. Data interpreted: Pulse oximetry: Interpretation: normal. Special discussion: I discussed with the patient/guardian in detail that at this point there is no indication for admission to the hospital. It is understood, however, that if the symptoms persist or worsen the patient needs to return immediately for re-evaluation. Administered Medications: 02:00 Drug: Augmentin 875 mg Route: PO; rv 02:18 Follow up: Response: Medication administered at discharge. rv 02:00 Drug: Ibuprofen 800 mg Route: PO; rv 02:18 Follow up: Response: Medication administered at discharge. 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 Exp: 09/07/2021. Lot #: [id number]. } rv Route: IM; Site: right deltoid; 02:18 Follow up: Response: Medication administered at discharge. rv Disposition: 01/26/20 01:53 Discharged to Home. Impression: Bitten by dog, Puncture wound without foreign body of left wrist, Abrasion of left wrist, Abrasion of right upper arm. - Condition is Stable. - Discharge Instructions: Animal Bite. - Prescriptions for Augmentin 875- 125 mg Oral Tablet - take 1 tablet by ORAL route every 12 hours for 10 days; 20 tablet. Ibuprofen 800 mg Oral Tablet - take 1 tablet by ORAL route every 8 hours As needed take with food; 30 tablet. - Medication Reconciliation Form, Thank You Letter, Antibiotic Education, Prescription Opioid Use form. - Follow up: Private Physician; When: Upon discharge from the Emergency Department; Reason: Recheck today's complaints, Continuance of care, Re-evaluation by your physician. - Problem is new. - Symptoms have improved. Signatures: Joe Camargo MD MD tw4 Melvin Cabrera RN RN rv Corrections: (The following items were deleted from the chart) 02:20 01:53 01/26/2020 01:53 Discharged to Home. Impression: Bitten by dog; Puncture wound rv without foreign body of left wrist; Abrasion of left wrist; Abrasion of right upper arm. Condition is Stable. Forms are Medication Reconciliation Form, Thank You Letter, Antibiotic Education, Prescription Opioid Use. Follow up: Private Physician; When: Upon discharge from the Emergency Department; Reason: Recheck today's complaints, Continuance of care, Re-evaluation by your physician. Problem is new. Symptoms have improved. tw4
== END 2020-01-26 02:20 | disposition home or self-care (01) ==
LOC: ER 01:23
DX: S61.532A Puncture wound without foreign body of left wrist, initial encounter (principal); S60.812A Abrasion of left wrist, initial encounter; S40.811A Abrasion of right upper arm, initial encounter; W54.0XXA Bitten by dog, initial encounter; Y93.9 Activity, unspecified; Y92.009 Unspecified place in unspecified non-institutional (private) residence as the place of occurrence of the external cause
CPT/HCPCS: 90471; 90714; 99283